=== PATIENT | male | born 1950 | race Caucasian/White ===

== ENCOUNTER → 2019-01-28 | Outpatient (CLI) | payer BC, MEDICARE, OTHER ==
[~2019-01-28] MED LIST: ALEVE 220MG220 MG PO; COZAAR 25MG25 MG/TAB PO; MULTIPLE VITAMI1 CAP PO; ZANTAC 150MG T150 MG PO; ZYRTEC 10MG10 MG PO
[2019-01-28 09:55] LABS: ALBUMIN 4.3 gm/dL (3.5-5.0); BILIRUBIN,TOTAL 0.9 mg/dL (0.0-1.0); CALCIUM 9.6 mg/dL (8.4-10.2); CHOLESTEROL RISK RATIO 2.8; CREATININE, serum 0.9 (0.66-1.25); POTASSIUM 4.5 mmol/L (3.4-5.0); TOTAL PROTEIN 7.5 gm/dL (6.4-8.2)
[2019-01-28 10:45] LABS: PSA-TOTAL 1.91 ng/mL (0-4)
== END ==
LOC: COL.LAB 08:23
PROVIDERS: Family Medicine
DX: Z12.5 Encounter for screening for malignant neoplasm of prostate (principal); E78.5 Hyperlipidemia, unspecified
CPT/HCPCS: G0103

== ENCOUNTER 2020-10-19 05:20 | Day surgery (SDC) | payer MEDICARE, OTHER ==
[2020-10-19] VITALS (10 sets, daily range): BP systolic 109–157; BP diastolic 71–84; PULSE 51–97; TEMP 97.3–98.9
[~2020-10-19 05:20] MED LIST changes: +CELEBREX 200MG200 MG PO; +CENTRUM SILVER1 CTB PO; -COZAAR 25MG25 MG/TAB PO; +COZAAR100 MG PO; +FLONASEALLERGY NS; +LIPITOR20 MG PO; -MULTIPLE VITAMI1 CAP PO; +OCUVITE1 TA1 PO; +OMEGA-3 FISH1000 MG PO
[2020-10-19] MEDS ORDERED: PRIL40 PO (05:49)
[2020-10-19] MEDS ORDERED: PEPCID AC20 MG PO (05:50)
--- NOTE | 2020-10-19 10:10 | NUR ---
PATIENT ADMITED INTO ROOM 327 POST OP RTK. A&O. VSS. DENIES PAIN IN RLE. PATIENT IS ABLE TO MOVE BLE. RLE DRESSING IS CD&I WITH ACEWRAP AND ICE PACK INPLACE. TEDS TO LLE. SCD'S TO BLE. POSITIVE PEDAL PULSES TO BLE. NO C/O N/V. LIQUIDS AT BEDSIDE. IV FLUIDS INFUSING VIA PUMP INTO LEFT WRIST IV. HEAD TO TOE ASSESSMENT WNL. ORIENTED TO ROOM. CALL LIGHT IN REACH.
[2020-10-20 03:31] VITALS: BP 172/92; PULSE 97; TEMP 99.2
[2020-10-20 06:28] LABS: HEMOGLOBIN 12.2 g/dl (13.5-18.0)
[2020-10-20 06:36] LABS: HEMATOCRIT 35.1 % (42.0-52.0)
[2020-10-20 08:14] VITALS: BP 156/84; PULSE 102; TEMP 988.3
--- NOTE | 2020-10-20 11:04 | NUR ---
SW met with the patient to discuss discharge plan. The patient lives in [place] with his , Kristyn (ph#[phone]). He reports independence with ADLs and has a cane and walker. The patient's PCP is Dr. Lauren Briscoe and he receives his medications from [facility]. He reports no difficulties obtaining his meds. The patient's DPOA-HC is in EMR and it designates his . The patient plans to return home with his and receive outpatient PT at [facility] upon discharge. No additional needs at this time.
[2020-10-20 11:58] VITALS: BP 182/92; PULSE 110; TEMP 98.8
[2020-10-20 16:33] VITALS: BP 159/85; PULSE 108; TEMP 98.4
[2020-10-20 20:00] VITALS: BP 154/84; PULSE 106; TEMP 98.9
--- NOTE | 2020-10-20 22:00 | NUR ---
Pt. sitting up in bed. PT. id [id number], assessment complete. INT to Lt. wrist patent. Dressing to rt. knee CDI. Pt. reports pain at a 5 on pain scale, gave pain meds per orders. Pt. denies further needs. Call light within reach.
[2020-10-21 04:28] VITALS: BP 113/65; PULSE 83; TEMP 98.8
--- NOTE | 2020-10-21 07:00 | NUR ---
Report received form [facility]. PT in bed resting, doing well, denies needs, will continue to monitor.
[2020-10-21 07:18] VITALS: BP 126/71; PULSE 88; TEMP 98.8
--- NOTE | 2020-10-21 08:04 | NUR ---
Assessment charted. R knee dressign chagned to aquacel per orders, incision is well approximated and instructed on aquacel. Pt doing well, PRN pain meds given for pain at 4/10 to R knee in anticipation of therapy today. INT to LW. Pt anticipating dishcarge today after therapy, will continue to monitor.
[2020-10-21 11:08] VITALS: BP 132/69; PULSE 98; TEMP 97.9
[2020-10-21] MEDS ORDERED: ASPI325T6 PO (11:39)
[2020-10-21] MEDS ORDERED: ROXICODONE 55 MG/TAB PO (11:42)
[2020-10-21] MEDS ORDERED: NORCO 325 MG-51 TAB PO (11:42)
[2020-10-21] MEDS ORDERED: SENOKOT S 50 MG1 TAB PO (11:43)
--- NOTE | 2020-10-21 12:30 | NUR ---
Discharge teaching completed at this time. PT received extra aquacel for knee if trouble with keeping the current one on for a week. Reviewed f/u appointments and meds for home. Reviewed packet, home meds and new scripts. pt left with all bleongings, escorted out via w/c with surgical staff. INT dc'd, tip intact. Criteria met.
--- NOTE | 2020-10-21 12:59 | NUR ---
First visit from the muleser. No needs right now.
== END 2020-10-21 12:45 | disposition home or self-care (01) ==
LOC: JCC 05:20 → INPTSU 05:20 → SDCO 05:20 → EDSTATUS 07:30 → JCC 07:30 → INPTSU 10:07 → JCC 10-20 07:43 → SDCO 10-21 12:45 → JCC 10-21 12:45
PROVIDERS: Orthopaedic Surgery
DX: M17.11 Unilateral primary osteoarthritis, right knee (principal); I10 Essential (primary) hypertension; K21.9 Gastro-esophageal reflux disease without esophagitis; J34.89 Other specified disorders of nose and nasal sinuses; Z20.828 Contact with and (suspected) exposure to other viral communicable diseases; Z79.899 Other long term (current) drug therapy; Z88.1 Allergy status to other antibiotic agents; Z88.0 Allergy status to penicillin
CPT/HCPCS: A9284; C1776; J0690; J2250; J2704; J3010; J7030; J7120

== ENCOUNTER 2022-05-25 09:19 | Outpatient (RCR) | payer MEDICARE, OTHER ==
[~2022-05-25 09:19] MED LIST changes: +ASPI325T6 PO; +NORCO 325 MG-51 TAB PO; +PEPCID AC20 MG PO; +PRIL40 PO; +ROXICODONE 55 MG/TAB PO; +SENOKOT S 50 MG1 TAB PO
== END 2022-06-22 | disposition still patient (30) ==
LOC: WSST
DX: R13.12 Dysphagia, oropharyngeal phase (principal)